=== PATIENT | male | born 1980 | race Caucasian/White ===

== ENCOUNTER 2018-03-11 20:41 | Emergency (ER) | payer BC ==
[~2018-03-11] VITALS: Ht 188 cm; Wt 84.0 kg
[2018-03-11 21:34] VITALS: BP 147/99
== END 2018-03-11 21:36 ==
LOC: ER 20:42
DX: S20.211A Contusion of right front wall of thorax, initial encounter (principal); M25.511 Pain in right shoulder; F17.200 Nicotine dependence, unspecified, uncomplicated; Z02.89 Encounter for other administrative examinations; V49.49XA Driver injured in collision with other motor vehicles in traffic accident, initial encounter; Y93.89 Activity, other specified; Y92.413 State road as the place of occurrence of the external cause; Y99.8 Other external cause status
CPT/HCPCS: 71045; 99284

== ENCOUNTER 2018-04-03 00:36 | Emergency (ER) | payer BC ==
[~2018-04-03] VITALS: Ht 190.5 cm; Wt 78.0 kg
[2018-04-03 01:08] VITALS: BP 134/75
[2018-04-03] MEDS ORDERED: HYDROcodone/acetaminophen 5mg/325mg tablet PO ONE ×2 (01:20→03:10)
[2018-04-03] MEDS ORDERED: TETanus/Pertussis (Acell)/Diphther VAC/PF (Tdap-Adult) 0.5ml syringe IM ONE (01:55)
[2018-04-03] MEDS ORDERED: HYDR-4383 PO (02:54)
== END 2018-04-03 03:22 | disposition home or self-care (01) ==
LOC: ER 00:37
DX: S22.32XA Fracture of one rib, left side, initial encounter for closed fracture (principal); S01.412A Laceration without foreign body of left cheek and temporomandibular area, initial encounter; S00.81XA Abrasion of other part of head, initial encounter; S00.31XA Abrasion of nose, initial encounter; S60.414A Abrasion of right ring finger, initial encounter; G89.29 Other chronic pain; Z88.5 Allergy status to narcotic agent; Z79.899 Other long term (current) drug therapy; Y04.0XXA Assault by unarmed brawl or fight, initial encounter; Y93.89 Activity, other specified; Y92.89 Other specified places as the place of occurrence of the external cause; Y99.8 Other external cause status
CPT/HCPCS: 12011; 70450; 70486; 71101; 72125; 90471; 90715; 99284